=== PATIENT | female | born 1980 | race Caucasian/White ===

== ENCOUNTER 2017-05-07 19:19 | Emergency (ER) | payer OTHER ==
[2017-05-07 20:29] LABS: BASOPHILS % (AUTO) 0.7 %; EOSINOPHILS # (AUTO) 0.3 10^3/uL (0.0-0.7); EOSINOPHILS % (AUTO) 3.5 %; HCT - HEMATOCRIT 40.1 % (37.0-47.0); HGB - HEMOGLOBIN 13.6 g/dL (12.0-16.0); LYMPHOCYTES # (AUTO) 2.4 10^3/uL (1.5-3.5); LYMPHOCYTES % (AUTO) 31.7 %; MEAN CORPUSCULAR HEMOGLOBIN 30.7 pg (27.0-31.0); MEAN CORPUSCULAR VOLUME 90.3 fL (81.0-99.0); MONOCYTES # (AUTO) 0.4 10^3/uL (0.0-1.0); MONOCYTES % (AUTO) 5.7 %; NEUTROPHILS # (AUTO) 4.4 10^3/uL (1.5-6.6); NEUTROPHILS % (AUTO) 58.4 %; RED BLOOD COUNT 4.44 10^6/uL (4.20-5.40); RED CELL DISTRIBUTION WIDTH 12.7 % (12.0-15.0); UNCORRECTED WHITE BLOOD COUNT 7.5 x10^3/uL; WHITE BLOOD COUNT 7.5 x10^3/uL (4.8-10.8)
[2017-05-07 20:35] LABS: INR 1.1 (0.8-1.2)
[2017-05-07 20:42] LABS: ALBUMIN/GLOBULIN RATIO 1.5 (1.0-2.2); BILIRUBIN,TOTAL 0.4 mg/dL (0.2-1.0); CALCIUM 9.2 mg/dL (8.5-10.3); CREATININE 0.8 mg/dL (0.4-1.0); POTASSIUM 3.8 mmol/L (3.5-5.0); TOTAL PROTEIN 7.4 g/dL (6.7-8.2)
[2017-05-07 20:43] LABS: D-DIMER < 200.0 ng/mL (200.0-255.0)
[2017-05-07 20:50] LABS: PARTIAL THROMBOPLASTIN TIME 32.1 secs (24.9-33.3)
--- NOTE | 2017-05-07 20:54 | XRAY Preliminary Report ---
Exam: XR Chest 1 View IMPRESSION: Normal single view chest. [facility] SITE ID: [id number]
--- NOTE | 2017-05-07 20:57 | XRAY Report ---
EXAM: CHEST RADIOGRAPHY EXAM DATE: 05/07/2017 08:49 PM. CLINICAL HISTORY: Chest pain. COMPARISON: None. TECHNIQUE: 1 view. FINDINGS: Lungs/Pleura: Clear. No effusion or pneumothorax. Mediastinum: Within exam limitations, cardiomediastinal contour is normal. Upper lobe vessels not dis tended. Other: None. IMPRESSION: Normal single view chest. [facility] Referring Provider Line: [phone] SITE ID: [id number]
[2017-05-07 21:06] VITALS: BP 101/66
--- NOTE | 2017-05-07 21:07 | ED Physician Documentation ---
PD HPI BACK INJURY - Stated complaint Stated Complaint: BACK/CHEST PX - History obtained from History obtained from: Patient, Family - History of Present Illness Location: Right Type of injury: Twist Where injury occurred: Park Timing - onset: Today Timing - details: Abrupt onset Quality: Pain, Sharp, Tearing Worsened by: Moving, Palpating Associated symptoms: No: Fever, Weakness, Numbness, Incontinent of urine Similar symptoms before: Has not had sx before Recently seen: Not recently seen - Additional information Additional information: Patient is a 37 year old female who is presenting with back pain. Patient states that the pain in her right lateral region. Patient states that she was at [employer] class and she developed the pain. Patient states that it is sharp in nature and radiates to the font of her chest. She also states that it gets worse with deep breaths. Review of Systems Constitutional: denies: Fever, Chills, Myalgias Eyes: denies: Decreased vision Ears: denies: Ear pain, Drainage/discharge Nose: denies: Rhinorrhea / runny nose, Congestion Throat: denies: Sore throat Cardiac: reports: Chest pain / pressure. denies: Palpitations, Calf pain Respiratory: denies: Dyspnea, Cough, Wheezing GI: denies: Abdominal Pain, Nausea, Vomiting : denies: Dysuria, Frequency, Hesitancy Skin: denies: Rash, Lesions, Abrasion (s), Laceration (s) Musculoskeletal: reports: Back pain, Extremity pain. denies: Neck pain Neurologic: denies: Generalized weakness, Focal weakness, Numbness Psychiatric: denies: Depressed, Suicidal Immunocompromised: denies: Immunocompromised PD PAST MEDICAL HISTORY - Past Medical History Past Medical History: No - Past Surgical History Past Surgical History: No - Allergies Allergies/Adverse Reactions: Allergies Allergy/AdvReac Type Severity Reaction Status Date / Time codeine Allergy Hallucinati Verified 05/07/17 20:29 ons - Social History Does the pt smoke?: No Smoking Status: Never smoker - Immunizations Immunizations are current?: Yes - POLST Patient has POLST: No PD ED PE NORMAL - Vitals Vital signs reviewed: Yes - General General: Alert and oriented X 3, No acute distress, Well developed/nourished - HEENT HEENT: Atraumatic, PERRL - Neck Neck: Supple, no meningeal sign - Cardiac Cardiac: RRR, No murmur - Respiratory Respiratory: No respiratory distress - Abdomen Abdomen: Soft, Non tender, Non distended - Derm Derm: Normal color, Warm and dry, No rash - Neuro Neuro: Alert and oriented X 3, No motor deficit, No sensory deficit, Normal speech - Psych Psych: Normal mood, Normal affect PD ED PE EXPANDED - Back Back: Soft tissue tenderness (tenderness to palpation of right lateral back) Results - Vitals Vitals: Vital Signs - 24 hr 05/07/17 05/07/17 05/07/17 19:25 20:08 21:05 Temperature 36.3 C L Heart Rate 72 68 62 Respiratory 17 18 Rate Blood Pressure 117/77 104/71 101/66 O2 Saturation 100 98 Oxygen O2 Source Room air - EKG (time done) 1937 Rate: Rate (enter#) (72) Rhythm: NSR [place]: Normal Intervals: Normal GA QRS: Normal Ischemia: Normal ST segments Compare to prior EKG: Old EKG unavailable - Labs Labs: Laboratory Tests 05/07/17 05/07/17 05/07/17 20:16 20:16 20:16 WBC 7.5 RBC 4.44 Hgb 13.6 Hct 40.1 MCV 90.3 MCH 30.7 MCHC 34.0 RDW 12.7 Plt Count 190 MPV 7.0 L Neut # 4.4 Lymph # 2.4 [place] # 0.4 Eos # 0.3 Baso # 0.0 Absolute Nucleated RBC 0.00 Nucleated RBCs 0.0 PT 12.0 INR 1.1 APTT 32.1 D-Dimer < 200.0 L Sodium 139 Potassium 3.8 Chloride 105 Carbon Dioxide 27 Anion Gap 7.0 BUN 17 Creatinine 0.8 Estimated GFR (MDRD) 82 L Glucose 85 Calcium 9.2 Total Bilirubin 0.4 AST 20 ALT 15 Alkaline Phosphatase 46 Troponin I Total Protein 7.4 Albumin 4.4 Globulin 3.0 Albumin/Globulin Ratio 1.5 Lipase 26 05/07/17 20:16 WBC RBC Hgb Hct MCV MCH MCHC RDW Plt Count MPV Neut # Lymph # [place] # Eos # Baso # Absolute Nucleated RBC Nucleated RBCs PT INR APTT D-Dimer Sodium Potassium Chloride Carbon Dioxide Anion Gap BUN Creatinine Estimated GFR (MDRD) Glucose Calcium Total Bilirubin AST ALT Alkaline Phosphatase Troponin I < 0.04 Total Protein Albumin Globulin Albumin/Globulin Ratio Lipase - Rads (name of study) chest x-ray Radiology: Final report received (no acute abnormality) PD MEDICAL DECISION MAKING - ED course Complexity details: reviewed old records, reviewed results, re-evaluated patient , considered differential, d/w patient, d/w family ED course: Patient was seen and examined at bedside. Patient's labs were drawn. ekg was performed and within normal limits. Patient's diagnostics including d-dimer where all within normal limits. Patient's pain was likely musculoskeletal in nature. Patient required no further work up at this time and was stable for discharge with outpatient follow up. Departure - Departure Disposition: Home, Self Care Clinical Impression: Muscle strain Condition: Good Instructions: ED Strain Muscle Ext Follow-Up: Sebastien Hardy ARNP [Primary Care Provider] - Within 1 week Comments: Your diagnostics today were within normal limits indicating it is less likely to be your heart or your lungs. Your symptoms are likely secondary to a muscle strain. You should take motrin or tylenol as needed for pain. You can apply ice or heat to the wound, whichever helps. You should follow up with your pmd if your symptoms persist for more than a week. You may return to the emergency department at any time for new, worsening or uncontrollable symptoms. Discharge Date/Time: 05/07/17 21:16
== END 2017-05-07 21:16 | disposition home or self-care (01) ==
LOC: ED 19:19
DX: S39.012A Strain of muscle, fascia and tendon of lower back, initial encounter (principal); X50.1XXA Overexertion from prolonged static or awkward postures, initial encounter; Y93.75 Activity, martial arts
CPT/HCPCS: 36415; 71010; 80053; 83690; 84484; 85025; 85379; 85610; 85730; 93005; 93010; 99283; 99284